=== PATIENT | male | born 1995 | race African-American/Black ===

== ENCOUNTER 2017-06-12 14:27 | Emergency (ER) | payer SELFPAY ==
[~2017-06-12] VITALS: Ht 177.8 cm; Wt 79.5 kg
[2017-06-12] MEDS ORDERED: D ME PO (14:35)
[2017-06-12] MEDS ORDERED: IBUPROFEN 800 MG TABLET PO ONE (15:30)
[2017-06-12] MEDS ORDERED: DEXAMETHASONE SOD PHOS 4 MG/ML 5 ML VIAL IM ONE (15:45)
[2017-06-12 17:19] VITALS: BP 133/69
== END 2017-06-12 17:22 | disposition home or self-care (01) ==
LOC: EMS 14:28
DX: J02.8 Acute pharyngitis due to other specified organisms (principal); B97.89 Other viral agents as the cause of diseases classified elsewhere
CPT/HCPCS: 87430; 96372; 99283; J1100